=== PATIENT | male | born 1965 | race Caucasian/White ===

== ENCOUNTER 2024-07-13 08:33 | Emergency (ER) | payer OTHER, BC ==
[2024-07-13] MEDS: Bacitracin Oint 1 GM U/D Packet TOP ONE (09:06)
[2024-07-13] MEDS: Lidocaine 1% 10 ML MDV INJECT ONE (09:06)
[2024-07-13] MEDS: Diphtheria,Pertussis(Acell),Tetanus Vaccine 0.5 ML Syringe IM ONE (09:07)
== END 2024-07-13 10:03 | disposition home or self-care (01) ==
LOC: JP.ED 08:33
DX: S61.210A Laceration without foreign body of right index finger without damage to nail, initial encounter (principal); Z23 Encounter for immunization; Z88.1 Allergy status to other antibiotic agents; Z79.4 Long term (current) use of insulin; Z79.899 Other long term (current) drug therapy; W26.8XXA Contact with other sharp object(s), not elsewhere classified, initial encounter; Y99.0 Civilian activity done for income or pay; Y92.89 Other specified places as the place of occurrence of the external cause
CPT/HCPCS: 12001; 12002; 90471; 90715; 99282-25; 99283